=== PATIENT | male | born 1980 | race African-American/Black ===

== ENCOUNTER 2024-07-12 09:10 | Emergency (ER) | payer OTHER ==
[~2024-07-12] VITALS: Ht 190.5 cm; Wt 93.0 kg
[2024-07-12] MEDS ORDERED: IBUPROFEN 400 MG TABLET ONE (10:05)
[2024-07-12] MEDS ORDERED: ACETAMINOPHEN ES 500 MG TABLET ONE (10:05)
[2024-07-12] MEDS: IBUPROFEN 400 MG TABLET PO ONE (10:11)
[2024-07-12] MEDS: ACETAMINOPHEN ES 500 MG TABLET PO ONE (10:12)
[2024-07-12] MEDS ORDERED: KETO10TA2 PO (11:18)
[2024-07-12 11:31] VITALS: BP 110/88; TEMP 98.6; O2SAT 95
== END 2024-07-12 11:31 | disposition home or self-care (01) ==
LOC: ER 09:26
DX: S00.83XA Contusion of other part of head, initial encounter (principal); M25.551 Pain in right hip; R22.0 Localized swelling, mass and lump, head; Y04.0XXA Assault by unarmed brawl or fight, initial encounter; Y93.89 Activity, other specified; Y92.89 Other specified places as the place of occurrence of the external cause; Y99.8 Other external cause status
CPT/HCPCS: 70486-TC